=== PATIENT | male | born 1995 | race Caucasian/White ===

== ENCOUNTER 2018-07-09 12:30 | Emergency (ER) | payer OTHER ==
[2018-07-09] MEDS ORDERED: KETAMINE HCL 500 MG/5 ML VIAL IVP ONE (12:40)
[2018-07-09] MEDS ORDERED: ONDANSETRON 4 MG/2 ML VIAL IVP ONE (12:40)
[2018-07-09] MEDS ORDERED: LORazepam 2 MG/ML VIAL IVP ONE (12:40)
[2018-07-09] MEDS ORDERED: fentaNYL CITR 100 MCG/2 ML AMP IVP ONE (12:40)
--- NOTE | 2018-07-09 12:42 | ER Report ---
History and Physical Time Seen By MD: 12:35 Hx. of Stated Complaint: pt reports he slipped on the ice last night. sent from urgent care for d/l and fx of R ankle needing reduction HPI/ROS CHIEF COMPLAINT: Right ankle fracture and dislocation HISTORY OF PRESENT ILLNESS: 23-year-old male patient presents to emergency room with complaint of fracture and dislocation to the right ankle. Patient states that he slipped on the ice last night. He states that he felt it pop and felt it pop out of place when that happened. He was able to put it back himself last ni ght. However while he was sleeping it popped out again. Patient states he went to urgent care this morning. They did an x-ray and felt that he needed to be evaluated here for reduction. Patient does have follow-up appointment with [facility]. REVIEW OF SYSTEMS: Respiratory: No cough, no dyspnea. Cardiovascular: No chest pain, no palpitations. Gastrointestinal: No vomiting, no abdominal pain. Musculoskeletal: As noted above Allergies: Coded Allergies: No Known Drug Allergies (Unverified , 07/09/18) Home Meds Active Scripts Oxycodone Hcl/Acetaminophen (PERCOCET 5-325 MG TABLET) 1 Each Tablet, 1 EACH PO Q4-6H PRN for PAIN, #20 TAB Prov:KELSEY HERNANDEZ 07/09/18 Past Medical/Surgical History Patient has a past medical history of a right ankle fracture. Patient has no pertinent surgical history. Reviewed Nurses Notes: Yes Constitutional Vital Sign - Last 24 Hours 07/09/18 07/09/18 07/09/18 07/09/18 12:32 12:35 12:40 12:45 Temp 98.1 Pulse 110 112 107 95 Resp 18 9 10 B/P (MAP) 149/110 149/110 (123) Pulse Ox 94 92 94 92 O2 Delivery Room Air 07/09/18 07/09/18 07/09/18 07/09/18 12:50 12:55 13:00 13:03 Pulse 102 91 98 Resp 11 9 10 B/P (MAP) 138/94 (109) 127/75 (92) Pulse Ox 94 94 87 07/09/18 07/09/18 07/09/18 07/09/18 13:05 13:08 13:10 13:15 Pulse 81 98 99 Resp 7 7 12 B/P (MAP) 151/106 (121) Pulse Ox 93 94 95 07/09/18 07/09/18 07/09/18 07/09/18 13:17 13:20 13:22 13:25 Pulse 83 92 Resp 14 9 B/P (MAP) 144/77 (99) 153/88 (109) Pulse Ox 95 93 O2 Flow Rate 2.0 07/09/18 07/09/18 07/09/18 07/09/18 13:30 13:45 13:50 14:00 Pulse 90 80 84 Resp 11 12 17 B/P (MAP) 143/90 (107) 133/85 (101) Pulse Ox 97 95 92 07/09/18 07/09/18 07/09/18 07/09/18 14:05 14:10 14:25 14:30 Pulse 77 94 78 Resp 6 10 7 B/P (MAP) 119/74 (89) Pulse Ox 92 93 91 86 O2 Flow Rate 0 07/09/18 07/09/18 07/09/18 07/09/18 14:40 14:55 15:00 15:10 Pulse 77 83 104 Resp 13 12 11 B/P (MAP) 118/83 (95) Pulse Ox 95 97 94 O2 Flow Rate 2 2 0 Physical Exam General Appearance: The patient is alert, has no immediate need for airway protection and no current signs of toxicity. Respiratory: Chest is non tender, lungs are clear to auscultation. Cardiac: regular rate and rhythm Gastrointestinal: Abdomen is soft and non tender, no masses, bowel sounds normal. Musculoskeletal: Neck: Neck is supple and non tender. Extremities have full range of motion and are non tender. Patient has obvious deformity to right ankle Skin: No rashes or lesions. DIFFERENTIAL DIAGNOSIS: After history and physical exam differential diagnosis was considered for fracture or dislocation. Medical Decision Making EKG/Imaging Imaging Exam type: ANKLE 3 VIEW MIN RIGHT History: post reduction Comparison: July 09, 2018. Findings: Right ankle is viewed through fiberglass cast. There has been interval reduction of the comminuted fracture to the distal shaft of fibula which has been reduced in improved anatomic alignment. There is very slight posterior and lateral displacement distal fibular fragment. There has been reduction of the lateral displacement of the talus IMPRESSION: 1. Interval reduction of the fracture dislocation of the right ankle as described above Report Dictated By: Ryann Mcmahon MD at 07/09/2018 1:52 PM Report E-Signed By: Ryann Mcmahon MD at 07/09/2018 1:54 PM ED Course/Re-evaluation ED Course Patient was admitted to a room and placed in a bed. History and physical were obtained. Differential diagnoses were considered. Consent was obtained for reduction of right ankle. After the reduction, an x-ray was obtained. The x- ray demonstrated the need to reduce it laterally. Second reduction was done and x-ray was obtained. Ankle was in anatomical position. Procedure: Procedural sedation. A pre-sedation evaluation was completed on the patient at 13:00. Patient is an appropriate candidate for procedural sedation. The risks of the sedation were discussed with the patient. A time out was completed. The patient was reevaluated immediately prior to initiation of sedation. The patient was sedated with Ketamine and Propofol. The patient was monitored with continuous pulse oximetry and manufacturing planner. There were no complications and no significant hypoxemia. I remained at the bedside for the sedation. The total time I spent in the procedural sedation was 20 minutes. Post sedation evaluation: Patient was alert and cooperative, hemodynamically stable with appropriate respiratory status, temperature and pain control without ongoing nausea and vomiting. Conscious sedation was performed by Dr. Granado Procedure: Dislocation reduction. The ankle was reduced in the usual fashion without complications. Post reduction the patient's neurovascular exam is normal. Post reduction x-ray demonstrates reduction of the joint to the anatomic position. The procedure was performed by myself. Procedure: Splint placement. A posterior and stirrup static splint was applied for distal fibular fracture with dislocation. After application of the splint I returned and re-examined the patient. The splint was adequately immobilizing the joint and distal to the splint the patient's circulation and sensation was intact. Decision to Disposition Date: Jul 09, 2018 Decision to Disposition Time: 15:20 Depart Departure Latest Vital Signs Vital Signs Date Time Temp Pulse Resp B/P (MAP) Pulse Ox O2 Delivery O2 Flow Rate FiO2 07/09/18 15:10 104 11 94 0 07/09/18 15:00 118/83 (95) 07/09/18 12:32 98.1 Room Air Impression: Primary Impression: Dislocation of ankle, right, closed Additional Impression: Fracture, fibula Condition: Improved Disposition: HOME OR SELF-CARE Referrals: MARÍA ABURTO MD New Scripts Oxycodone Hcl/Acetaminophen (PERCOCET 5-325 MG TABLET) 1 Each Tablet 1 EACH PO Q4-6H PRN for PAIN, #20 TAB Prov: KELSEY HERNANDEZ 07/09/18 Patient Instructions: Ankle Dislocation (ED), Ankle Fracture (ED) Additional Instructions: Please follow up with Ortho. Non weight bearing. Ibuprofen for pain control. Apply ice to the ankle (on top of the splint) for 20 minutes at a time throughout the day. Please do not hesitate to return to the ED for any concerns or complications. Loosen the yang wrap if the splint is feeling too tight. Problem Qualifiers Primary Impression: Dislocation of ankle, right, closed Encounter type: initial encounter Qualified Codes: S93.04XA - Dislocation of right ankle joint, initial encounter Additional Impression: Fracture, fibula Encounter type: initial encounter Fibula location: distal Fracture type: closed Fracture morphology: unspecified fracture morphology Laterality: right Qualified Codes: S82.831A - Other fracture of upper and lower end of right fibula, initial encounter for closed fracture KELSEY HERNANDEZ Jul 09, 2018 12:42
[2018-07-09] MEDS ORDERED: NS(*) 0.9% 1000 ML BAG 1,000 ML IV ONE (12:45)
[2018-07-09] MEDS: PROPOFOL EMUL 10MG/ML 20 ML VL IV ONE ×2 (13:08→13:51)
[2018-07-09] MEDS ORDERED: KETAMINE HCL-NS 50 MG/5 ML SYR ONE (13:12)
--- NOTE | 2018-07-09 13:59 | RADIOLOGY IMAGING REPORT ---
FAC[place] [facility] [place] NAME: Jose Lanza : 1995 MR: [id number] V: [id number] EXAM DATE: ORDERING PHYSICIAN: KELSEY HERNANDEZ TECHNOLOGIST: Location: [facility] Patient: Jose Lanza : 1995 Visit/Account:[id number] Date of Sevice: 07/09/2018 Exam type: ANKLE 3 VIEW MIN RIGHT History: post reduction Comparison: July 09, 2018. Findings: Right ankle is viewed through fiberglass cast. There has been interval reduction of the comminuted f racture to the distal shaft of fibula which has been reduced in improved anatomic alignment. There i s very slight posterior and lateral displacement distal fibular fragment. There has been reduction o f the lateral displacement of the talus IMPRESSION: 1. Interval reduction of the fracture dislocation of the right ankle as described above Report Dictated By: Ryann Mcmahon MD at 07/09/2018 1:52 PM Report E-Signed By: Ryann Mcmahon MD at 07/09/2018 1:54 PM WSN:[email or web address]
[2018-07-09 15:00] VITALS: BP 118/83
[2018-07-09] MEDS ORDERED: OXYC-865 PO (15:18)
== END 2018-07-09 15:38 | disposition home or self-care (01) ==
LOC: ER 12:37
DX: S82.831A Other fracture of upper and lower end of right fibula, initial encounter for closed fracture (principal); S93.04XA Dislocation of right ankle joint, initial encounter
CPT/HCPCS: 27788; 73610; 96361; 96374; 96375; 99153; 99285; J2060; J2405; J2704; J3010; J7030